=== PATIENT | female | born 1980 | race Hispanic/Latino ===

== ENCOUNTER 2019-04-10 12:31 | Day surgery (SDC) | payer BC ==
[2019-04-10 13:47] LABS: #Basophils 0.1 thou/uL (0.0-0.2); #Eosinphils 0.1 thou/uL (0.0-0.7); #Lymphocytes 2.9 thou/uL (1.20-3.40); #Monocytes 0.7 thou/uL (0.11-0.59); #Neutrophils 7.9 thou/uL (1.40-6.50); %Basophils 0.9 % (0.0-1.0); %Eosinophils 1.1 % (0.0-10.0); %Lymphocytes 24.9 % (21.0-51.0); %Monocytes 6.3 % (0.0-10.0); %Neutrophils 66.9 % (42.0-75.0); Hemoglobin 13.4 g/dL (12.0-16.0); Mean Corpuscular HGB CONC 32.6 g/dL (32.0-36.0); Mean Corpuscular Hemoglobin 28.9 pg (27.0-31.0); Mean Corpuscular Volume 88.6 fL (78.0-98.0); Mean Platelet Volume 8.4 fL (7.4-10.4); Platelet Count 296 thou/uL (130-400); RBC Distribution Width 12.6 % (11.5-14.5); Red Blood Cell (RBC) Count 4.63 mill/uL (4.20-5.40); White Blood Cell (WBC) Count 11.8 thou/uL (4.8-10.8)
[2019-04-10 13:52] LABS: BHCG - Serum Negative (NEGATIVE); Pregs Control Background? CLEAR/WHITE (CLR/WHITE); Pregs Control Bar Appear? YES (CONTROL BAR)
[2019-04-10 13:56] LABS: Bilirubin Negative (Negative); Blood, Urine Negative (Negative); Clarity Clear (Clear); Glucose, Urine (Dipstick) Normal (Negative); Leukocyte Negative Leu/uL (Negative); Nitrite Negative (Negative); Protein, Urine (Dipstick) 10 mg/dL (Neg-Trace); Urobilinogen Normal mg/dL (Less than 2)
[2019-04-10 13:58] LABS: Pregnancy Test - Urine (BHCG) Negative (Negative); Pregu Control Background? CLEAR/WHITE (CLR/WHITE); Pregu Control Bar Appear? YES (CONTROL BAR); Specific Gravity 1.027 (1.002-1.036)
[2019-04-10 14:13] LABS: ALT (SGPT) 18 U/L (8-55); AST (SGOT) 26 U/L (5-34); Albumin 4.5 g/dL (3.5-5.0); Alkaline Phosphatase 88 U/L (40-150); Anion Gap 13 mmol/L (10-20); BUN (Urea Nitrogen) 11 mg/dL (7.0-18.7); Bilirubin, Total 0.3 mg/dL (0.2-1.2); Calc. Creatinine Clearance 0 mL/min (70-130); Carbon Dioxide 25 mmol/L (22-29); Chloride 103 mmol/L (98-107); Estimated GFR-MDRD 81; Globulin 4.1 g/dL (2.4-3.5); Glucose 73 mg/dL (70-105); Lipase 22 U/L (8-78); Potassium 4.7 mmol/L (3.5-5.1); Protein, Total 8.6 g/dL (6.0-8.3); Sodium 136 mmol/L (136-145)
[2019-04-10] MEDS ORDERED: Sodium Chloride 0.9% 100 ML ONE (14:41)
[2019-04-10] MEDS ORDERED: Piperacillin/Tazobactam 4.5 GM VIAL ONE (14:41)
--- NOTE | 2019-04-10 15:37 | CT ---
CT ABDOMEN AND PELVIS WITH IV CONTRAST: History: Left sided abdominal pain with onset of symptoms one day ago. Patient now reports. Patient now report s that on deep breath she has pain in the right lower quadrant. Radiation of pain through the back. P atient had nausea. Comparison: None available. FINDINGS: The appendix is dilated measuring 1 cm in greatest diameter. There is adjacent periappendiceal inflam matory change seen, most compatible with appendicitis. No fluid collection is seen to suggest an absc ess and there is no free intraperitoneal gas identified. Minimal atelectasis is seen at the left lung base with nonspecific pleural based densities noted. The liver, spleen, pancreas, bilateral adrenal glands, kidneys, abdominal aorta, and uterus demonstra te a normal CT appearance. The urinary bladder is mostly decompressed and not well evaluated. There is a 3 cm low density cystic lesion within the right ovary, likely related to an ovarian cyst. Left adnexal structures have a normal appearance. Loops of small bowel are normal in caliber. IMPRESSION: 1. Acute appendicitis. 2. Findings discussed with Dr. Biggs in the Emergency Department on 04-10-19 at 1421 hours. POS: ZULEIMA
--- NOTE | 2019-04-10 16:14 | HP ---
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 CAT scan confirms appendicitis. I have been asked by Dr. Santos to see her regarding this. ALLERGIES: LATEX. SOCIAL HISTORY: Tobacco, none. Alcohol, rarely. MEDICATIONS: None routinely. PAST SURGICAL HISTORY: Oral surgery, wisdom teeth. REVIEW OF SYSTEMS: Ten-point noncontributory. PHYSICAL EXAMINATION: HEAD EARS, EYES, NOSE AND THROAT: Unremarkable. LUNGS: Clear to auscultation. NEUROLOGICAL: Intact. No focal deficit. ABDOMEN: Soft, tenderness in right lower quadrant with guarding and rebound. EXTREMITIES: Unremarkable. LABORATORY DATA: White count 11 and hemoglobin 13. Basic metabolic profile, normal. ASSESSMENT AND PLAN: Acute appendicitis. Recommend laparoscopic video appendectomy. Risks of infection, bleeding, visceral injury discussed. Questions answered. Job ID: [id number]
[2019-04-10] MEDS ORDERED: Bupivacaine/Epinephrine 0.25% 30 ML VIAL ONE (18:52)
[2019-04-10] MEDS ORDERED: Bupivacaine HCl 0.5%/Epinephrine 1:200,000/PF 30 ml Vial ONE (18:52)
[2019-04-10] MEDS ORDERED: Fentanyl 100 MCG/2 ML VIAL ONE (19:29)
[2019-04-10] MEDS ORDERED: Morphine 4 MG/ML VIAL ONE (19:29)
[2019-04-10] MEDS ORDERED: Piperacillin/Tazobactam 4.5 GM in Sodium Chloride 0.9% 100 ML IVPB ONE (20:00)
[2019-04-10] MEDS ORDERED: SUGAMMADEX SODIUM 200 MG/2 ML VIAL ONE (20:07)
[2019-04-10] MEDS ORDERED: Meperidine HCl/PF 25 MG/ML VIAL ONE (20:24)
[2019-04-10] MEDS ORDERED: Ondansetron PF 4 MG/2 ML Vial ONE (20:24)
--- NOTE | 2019-04-10 20:29 | OP ---
DATE OF PROCEDURE: 04/10/2019 PREOPERATIVE DIAGNOSIS: Acute appendicitis. POSTOPERATIVE DIAGNOSIS: Acute appendicitis. PROCEDURE PERFORMED: Laparoscopic video appendectomy. ANESTHESIA: General, local 0.5% Marcaine with epinephrine 30 mL. DESCRIPTION OF PROCEDURE: The patient was taken to the operating room, where under general anesthesia, abdomen was prepared with ChloraPrep and draped in routine fashion. Escalante catheter was placed at the beginning of procedure, removed at the end. Local anesthetic was infiltrated in the skin and subcutaneous tissue about each port site. Infraumbilical incision was made. Pneumoperitoneum to 15 mmHg was obtained with a Veress needle, replaced with a 5 port, video laparoscope inserted. Suprapubic incision was made and a 12 port was placed. Right lateral subcostal incision was made and a 5 port was placed. Appendix was acutely inflamed. Mesoappendix was taken down with the LigaSure. The stump of the appendix divided at the cecal stump with Endo BENIGNO blue load stapler. The appendix was removed, submitted to Pathology. Good hemostasis noted in the staple line. Irrigant and pneumoperitoneum evacuated after suprapubic fascia was approximated with 0 Vicryl using a GraNee needle. Skin was approximated with subdermal 4-0 Monocryl. The patient tolerated the procedure well. [place] glue applied. Job ID: [id number]
[2019-04-10] MEDS ORDERED: HYDROcodone/Acetaminophen 5/325 mg Tablet ONE (20:57)
--- NOTE | 2019-04-14 16:32 | EKG ---
Test Reason : ABD PAIN Blood Pressure : / mmHG Vent. Rate : 071 BPM Atrial Rate : 071 BPM P-R Int : 144 ms QRS Dur : 090 ms QT Int : 386 ms P-R-T Axes : 036 004 001 degrees QTc Int : 419 ms Normal sinus rhythm Moderate voltage criteria for LVH, may be normal variant Borderline ECG Confirmed by CHAD VALENCIA, WALTER ([id number]), editor farm journal MAGDALENO HURD ([id number] on 04/14/2019 4:32:24 PM Referred By: Confirmed By:WALTER BONILLA MD
== END 2019-04-10 21:30 | disposition home or self-care (01) ==
LOC: ERS 12:31 → SDC/OP 17:30
PROVIDERS: ATTEND Specialist
PROC: 0DTJ4ZZ Resection of Appendix, Percutaneous Endoscopic Approach (ICD-10-PCS; principal; 2019-04-10)
DX: K35.80 Unspecified acute appendicitis (principal); Z79.899 Other long term (current) drug therapy; Z88.6 Allergy status to analgesic agent; Z91.040 Latex allergy status
CPT/HCPCS: 74177; 80053; 81003; 81025; 83690; 84484; 84703; 85025; 88304; 93005; 96361; 96365; J0131; J0670; J2175; J2270; J2405; J2543; J3010; J3490